=== PATIENT | female | born 1985 | race Caucasian/White ===

== ENCOUNTER 2018-11-10 13:00 | Emergency (ER) | payer OTHER ==
--- OUTSIDE RECORDS SUMMARY | 2018-11-10 13:52 | XMS REPORT | Continuity of Care Document ---
:1985 External Reference #:[id number] Author Name Orly Hummel PNP-BC, RISK DEVELOPER, [facility] Address [address] [place] [address] Care Team Providers Name Role Phone Orly Hummel PNP-BC, RISK DEVELOPER, [facility]cl[facility] Care Team Information Research And Development Technician Unavailable Orly Hummel PNP-BC, RISK DEVELOPER, [facility] Primary Care Physician Unavailable Payers Date Identification Numbers Payment Provider Subscriber Policy Number: [id number] [employer] Dorita Aguilar PayID: [id number] [address] [place] [phone] Advance Directives Description No Information Available Problems Description No Active Problems Family History Date Family Member(s) Observation Comments Father Unknown Mother No Current Problems Social History Type Date Description Comments Sex Unknown ETOH Use Denies alcohol use Tobacco Use Start: Unknown Light tobacco smoker (10 or fewer cigarettes/day) Smoking Status Reviewed: 10/25/18 Light tobacco smoker (10 or fewer cigarettes/day) Allergies, Adverse Reactions, Alerts Active Allergies Reaction Severity Comments Date Penicillin 05/22/2015 Medications Active Medications SIG Qnty Indications Ordering Date Provider Miralax 1 capfull as 510gm Orly Hummel, 11/01/2018 [id number] Powder directed every PNP-BC, RISK DEVELOPER, day to start in [facility] 8 oz of liquids may increase to bid if needed Duloxetine HCL 1 by mouth every 60caps F41.9 Orly Hummel, 10/25/2018 30mg Caps day for 2 week PNP-BCMARI, Part then 2 once a Ibcl[facility] day. Clonidine HCL take one tablet 120tabs F41.9 Orly Hummel, 10/25/2018 0.1mg by mouth four MARI COTTO, Tablets times a day as Ibclc needed maximum daily dose=4 Omeprazole 1 by mouth every 30caps K21.9 Orly Hummel, 10/25/2018 20mg Capsules day MARI COTTO, Ibclc Britt apply 21mg patch 42units Z72.0 Campbell Buchanan MD 09/29/2018 21mg/24HR every day x 6 Patches 24HR weeks, then 14mg patch every day x 2 weeks then 7mg patch every day x 2 weeks Levothyroxine Sodium 1 by mouth every 30tabs Campbell Buchanan MD 09/14/2018 day 50mcg Tablets History Medications Cefdinir 1 by mouth twice 20caps J02.9 Orly Hummel, 10/25/2018 - 300mg Capsules a day MARI COTTO, 11/04/2018 Ibcl[facility] Bupropion start 1 week 60tabs Z72.0 Campbell Buchanan MD 09/29/2018 - Hydrochloride ER (XL) prior to smoking 09/29/2018 quit date. start 150mg Tablets ER 24HR 150mg once a day for 3 days, then 150mg bid. Bupropion 1 tab by mouth 60tabs Campbell Buchanan MD 09/29/2018 - Hydrochloride ER (SR) every day and if 10/25/2018 tolerated after 3 150mg Tablets ER 12HR days, then twice daily. No Active Medications Unknown 09/04/2015 - 09/14/2018 Levonorgestrel/Ethiny 1 by mouth every 28tabs Z30.011 Kamila Foote, 2014 - l Estradiol day M.D. 09/04/2015 0.1-20mg-mcg Tablets Clindamycin HCL 1 cap by mouth 28caps Kamila Foote, - 150mg four times a day M.D. 09/04/2015 Capsules with 6-8oz water Ibuprofen 1 tablet by mouth 90tabs Kamila Foote, - 800mg Tablets three times a day M.D. 09/04/2015 with meals. Medications Administered in Office Medication SIG Qnty Indications Ordering Provider Date PPD Injection Campbell Buchanan MD 09/13/2018 Immunizations CPT Code Status Date Vaccine Lot # [id number] Given 05/22/2015 Influenza Vaccine (Fluzone) Age 3 And Older [id number] Vital Signs Date Vital Result Comment 10/25/2018 6:31pm BP Systolic 118 mmHg BP Diastolic 66 mmHg Body Temperature 97.8 F Heart Rate 87 /min Respiratory Rate 17 /min Height 68 inches 5'8" Weight 142.00 lb BMI (Body Mass Index) 21.6 kg/m2 BSA (Body Surface Area) 1.77 m2 Voss body weight in kilograms 63 kg 09/29/2018 1:29pm BP Systolic 102 mmHg BP Diastolic 68 mmHg Heart Rate 80 /min Respiratory Rate 18 /min Height 68 inches 5'8" Weight 143.25 lb BMI (Body Mass Index) 21.8 kg/m2 BSA (Body Surface Area) 1.77 m2 Voss body weight in kilograms 63 kg O2 % BldC Oximetry 98 % Ra 09/13/2018 7:31am BP Systolic Sitting Left Arm 112 mmHg BP Diastolic Sitting Left Arm 64 mmHg Body Temperature 97.6 F Heart Rate 78 /min Weight 146.25 lb O2 % BldC Oximetry 97 % 09/04/2015 11:17am BP Systolic 108 mmHg BP Diastolic 62 mmHg Height 68 inches 5'8" Weight 144.00 lb BMI (Body Mass Index) 21.9 kg/m2 BSA (Body Surface Area) 1.78 m2 05/22/2015 1:08pm BP Systolic 130 mmHg BP Diastolic 78 mmHg Heart Rate 88 /min Respiratory Rate 18 /min Height 68 inches 5'8" Weight 146.50 lb BMI (Body Mass Index) 22.3 kg/m2 BSA (Body Surface Area) 1.79 m2 Last Menstrual Period [id number] Results Test Date Facility Test Result H/L Range Note Laboratory test 10/25/2018 [facility] Rapid Strep neg finding Molecular T7/TSH 09/13/[address] T3 Uptake 34 % N 31-[address] [place] [address] [phone] Thyroxine (T4) 8.4 g/dL N 4.7-13.3 T7 2.86 g/dL Low 5.0-12.0 Thyroid Stim Hormone 6.56 uIU/mL High 0.30-4.20 CBC W/Automated Diff 09/13/[address] White Blood 7.1 K/uL N 3.1-10.[address] [place], [place] [id number] [phone] Red Blood Count 4.63 M/uL N 3.90-5.40 Hemoglobin 13.8 gm/dL N 11.6-15.8 Hematocrit 39.9 % N 36.0-46.1 Mean Cell Volume 86.2 fl N 80.9-99.0 Mean Corpuscular HGB 29.8 pg N 25.9-32.7 Mean Corpuscular HGB Conc 34.6 g/dL High 30.8-34.3 Platelet Count 187 K/uL N 155-360 Red Cell Distri Width SD 39.2 fl N 36-47 Red Cell Distri Width %CV 12.9 % N 11.7-14.4 Mean Platelet Volume 11.9 fL N 8.9-12.4 Neut% 60.9 % N 40.4-72.8 Lymph % 30.5 % N 20.0-42.0 [place] % 7.4 % N 4.3-13.2 Eo% 1.1 % N 0.0-6.6 Bas% 0.1 % N 0.0-1.1 Neut# 4.33 K/uL N 1.8-7.0 Lymph # 2.17 K/uL N 1.0-4.0 [place] # 0.53 K/uL N 0.3-0.9 Eos # 0.08 K/uL N 0.0-0.5 Baso # 0.01 K/uL N 0.0-0.1 Comprehensive Metabolic 09/13/[address] [facility] [address] Glucose 98 mg/dL N 74 -[address] [place] [address] [id number] [phone] BUN 11 mg/dL N 7-18 Creatinine 0.7 mg/dL N 0.6-1.3 Glom Filtration Rate, Estimate >60 mL/min >60 If >60 mL/min >60 2 BUN/Creat 15.7 ratio Sodium 138 mmol/L N 136-145 Potassium 3.8 mmol/L N 3.5-5.1 Chloride 107 mmol/L N 98-107 Carbon Dioxide 23 mmol/L N 21-32 Anion Gap 8 mEq/L N 8-16 Calcium 8.4 mg/dL Low 8.5-10.1 Total Protein 7.1 g/dL N 6.4-8.2 Albumin 3.6 g/dL N 3.4-5.0 Globulin 3.5 g/dL N 1.9-4.3 Alb/Glob 1.0 ratio Bilirubin,Total 0.5 mg/dL N 0.2-1.0 Sgot/Ast 14 U/L Low 15-37 3 SGPT/Alt 19 U/L N 12-78 Alkaline Phosphatase 58 U/L N 45-117 LDL Cholesterol Profile 09/13/[address] [facility] [address] Cholesterol 186 mg/dL <[address] [place] [address] [phone] Triglycerides 89 mg/dL <150 5 HDL Cholesterol 39 mg/dL Low >40 6 LDL-Cholesterol 129 mg/dL < 100 7 Glycohemoglobin A1c 09/13/[address] [facility] [address] Glycohemoglobin 4.7 % N 4.2-6.3 8 [address] [facility] (A1c) [place], [place] [id number] [phone] eAG 88 mg/dL Urine HCG 08/24/2016 [facility] Urine HCG NEGATIVE N Negative 9, (Qualitative) [address] (Qualitative) 10 [place], [place] [id number] [phone] Source: URINE, CLEAN CAT <SEE NOTE> 11 Ua Routine 08/24/2016 [facility] Urine Color YELLOW N Yellow [address] [place], [place] [id number] [phone] Urine Clarity CLEAR N Clear Urine Glucose - Dipstick NEGATIVE mg/dL N Negative Urine Bilirubin - Dipstick NEGATIVE N Negative Urine Ketone NEGATIVE mg/dL N Negative Urine Specific [place] <=1.005 Low 1.010-1.030 Urine Blood LARGE Abnormal Negative Urine PH 6.0 Low 6.5-7.5 Urine Protein - Dipstick 30 mg/dL High Negative Urine Urobilinogen - Dipstick 0.2 E.U./dL N 0.2-1.0 Urine Nitrite - Dipstick NEGATIVE N Negative Urine Leuk Esterase SMALL Abnormal Negative Urine RBC 2-5 rbc/hpf N 0-2 Urine WBC 5-10 wbc/hpf N 0-7 Urine Epithelial Cells FEW /lpf N None Seen Urine Bacteria FEW N None Seen Urine Mucus MODERATE N None Seen Urine Amorph Sediment MODERATE N Negative Source: URINE, CLEAN CAT <SEE NOTE> 12 Drugs Of 08/24/2016 [facility] Amphetamines (Urine) Negative N Abuse-Urine Screen [address] [place] [address] [phone] Barbiturates (Urine) Negative N Benzodiazepines (Urine) Negative N Cannabinoids (Urine) Negative N Cocaine Metabolite (Urine) Negative N Methadone (Urine) Negative N Opiates (Urine) Negative N Urine Cutoffs * N 13 Urine Culture 08/24/2016 [facility] Urine BETA STREPTOCOCC Abnormal [address] Culture <SEE NOTE> [place] [id number] [phone] Quantity > 100,000 CFU/mL N 15 Urine Screen 01/22/2016 [facility] Ua RFX Micro + See Note [address] [place] [place] [address] [phone] Urinalysis With 01/22/2016 [facility] Urine Color YELLOW Yellow Microscopic [address] [place] [address] [phone] Urine Clarity CLEAR Clear Urine Glucose - Dipstick NEGATIVE mg/dL Negative Urine Bilirubin - Dipstick NEGATIVE Negative Urine Ketone TRACE mg/dL High Negative Urine Specific [place] 1.010 1.010-1.030 Urine Blood NEGATIVE Negative Urine PH 7.5 6.5-7.5 Urine Protein - Dipstick NEGATIVE mg/dL Negative Urine Urobilinogen - Dipstick 0.2 E.U./dL 0.2-1.0 Urine Nitrite - Dipstick NEGATIVE Negative Urine Leuk Esterase SMALL High Negative Urine RBC 0-2 rbc/hpf 0-2 Urine WBC 0-2 wbc/hpf 0-7 Urine Epithelial Cells MODERATE NONESEEN/lpf 17 Urine Bacteria FEW NONESEEN Urine Amorph Sediment VERY FEW Negative Laboratory test 09/04/2015 [facility] HCG, Quant < 1.0 mIU/mL 18 finding [address] [place] [address] [phone] Urine Culture 09/04/2015 [facility] Urine Culture See Note 19 [address] [place] [address] [phone] Laboratory test 05/22/2015 [facility] Antibody See Note [address] [place] [address] [phone] Chlamydia/GC 05/22/2015 [facility] Chlamydia Negative Negative Oksana [address] Trachomatis, [place] [address] Oksana [phone] Neisseria Gonorrhoeae, Oksana Negative Negative Please note: See Note 21 Hepatitis C 05/22/2015 [facility] Hepatitis C Nonreactive Antibody [address] [place] [place] [address] [phone] Signal/Cutoff ratio 0.02 <0.80 22 Laboratory test 05/22/2015 [facility] Treponema Nonreactive [address] [place] [place] [address] Pierce [phone] Affirm 11/29/2013 N2N/[facility] Import Marzena Negative [Nega species tive] Gardnerella vaginalis Positive High [Negative] Trichomonas vaginalis Negative [Negative] Chlamydia/GC Oksana 11/29/2013 N2N/CCD Import Chlamydia Negative Negative Trachomatis, Oksana Neisseria Gonorrhoeae, Oksana Negative Negative Please note: See Note 24 Laboratory test 11/29/2013 N2N/[facility]D Import Urine HCG Negative Negative 25 finding (Qualitative) Urine Screen 11/29/2013 N2N/CCD Import Urine Bilirubin - Negative Negative Dipstick Urine Blood Negative Negative Urine Clarity Clear Clear Urine Color Yellow Yellow Urine Glucose - Dipstick Negative mg/dL Negative Urine Ketone Negative mg/dL Negative Urine Leuk Esterase Negative Negative Urine Nitrite - Dipstick Negative Negative Urine PH 6.0 Low 6.5-7.5 Urine Protein - Dipstick Negative mg/dL Negative Urine Specific [place] 1.025 1.010-1.030 Urine Urobilinogen - Dipstick 0.2 E.U./dL 0.2-1.0 1 Z13.6 2 Note: Persistent reduction for 3 months or more in an eGFR <60 mL/min/1.73 m2 defines CKD. Patients with eGFR values >/=60 mL/min/1.73 m2 may also have CKD if evidence of persistent proteinuria is present. The original MDRD equation for estimated GFR is not valid for patients less than 18 years of age. Additional information may be found at www.kdoqi.org. 3 Values below the stated reference ranges of AST and ALT can be seen in normal populations. Clinical correlation is suggested. 4 Reference Guidelines*: Desirable: ........... < 200 mg/dL Borderline High: ..... 200-239 mg/dL High: ................ >=240 mg/dL * The National Cholesterol Education Program (NCEP) 5 Reference Guidelines*: Normal: ............. < 150 mg/dL Borderline High: .... 150-199 mg/dL High: ............... 200-499 mg/dL Very High: .......... > 500 mg/dL * Source: National Cholesterol Education Program (NCEP) 6 Reference Guidelines*: Low HDL: ..... < 40 mg/dL Normal: ..... 40-60 mg/dL Desirable: ... > 60 mg/dL *The National Cholesterol Education Program(NCEP) 7 Reference Guidelines*: Optimal:........... <100 mg/dL Near Optimal....... 100-129 mg/dL Borderline High.... 130-159 mg/dL High............... 160-189 mg/dL Very High.......... >=190 mg/dL * Source: National Cholesterol Education Program (NCEP) 8 Elevated levels of HbA1c suggest the need for more aggressive treatment of glycemia. The [place] [employer] recommends that a primary goal of therapy should be a HbA1c of <7% and that physicians should re-evaluate the treatment regimen in patients with HbA1c values consistently >8%. 9 back pain 10 FIRST MORNING SPECIMENS GENERALLY CONTAIN THE HIGHEST CONCENTRATION OF HCG AND ARE RECOMMENDED FOR EARLY DETECTION OF . 11 URINE, CLEAN CATCH 12 URINE, CLEAN CATCH 13 URINE SPECIMENS ARE SCREENED AT THE LISTED CUTOFFS DRUG CLASS INITIAL TEST LEVEL Amphetamines 1000 ng/mL Barbiturates 200 ng/mL Benzodiazepines 200 ng/mL Cannabinoids 50 ng/mL Cocaine Metabolite 300 ng/mL Methadone 300 ng/mL Opiates 300 ng/mL Any PRESUMPTIVE POSITIVE findings are UNCONFIRMED. Confirmatory testing is suggested if findings are unexpected. Please contact laboratory if confirmatory testing is desired. SPECIMENS ARE HELD FOR 72 HOURS. 14 BETA STREPTOCOCCUS GROUP C 15 > 100,000 CFU/mL 16 01/22/16 [facility] Deleted by Reflex Group UACOM 17 POSSIBLE UROGENITAL CONTAMINATION. 18 Approximate Gestational Age and Total BHCG Range: 0.2 - 1 Week........................5-50 mIU/mL 1 - 2 Weeks.....................50-500 mIU/mL 2 - 3 Weeks..................100-5,000 mIU/mL 3 - 4 Weeks.................500-10,000 mIU/mL 4 - 5 Weeks...............1,000-50,000 mIU/mL 5 - 6 Weeks.............10,000-100,000 mIU/mL 6 - 8 Weeks.............15,000-200,000 mIU/mL 2 - 3 Months............10,000-100,000 mIU/mL 19 Organism 1 ! URETHRAL BRYAN Quantity ! < 10,000 CFU/mL 20 No reportable results 21 Acceptable specimens for this test are male urethral swab, endocervical swab and liquid based pap specimens, vaginal swabs in APTIMA transports and first void urine. See online Directory of Services for test number for rectal and pharyngeal specimens. Performed at: [address] [id number] Head Counselor: Katerina Fleming MD, Phone: [phone] 22 Antibodies to HCV not detected; does not exclude early acute HCV infection. 23 Please Note: A nonreactive test result does not exclude the possibility of exposure to, or infection with syphilis. T. pallidum antibodies may be undetectable in some stages of the infection and in some clinical conditions. 24 Acceptable specimens for this test are male urethral swab, endocervical swab and liquid based pap specimens, vaginal swabs in APTIMA transports and first void urine. See online web2media.sky of Services for test number for rectal and pharyngeal specimens. Performed at: [address] [id number] Head Counselor: Katerina Fleming MD, Phone: [phone] 25 FIRST MORNING SPECIMENS GENERALLY CONTAIN THE HIGHEST CONCENTRATION OF HCG AND ARE RECOMMENDED FOR EARLY DETECTION OF . Procedures Date Code Description Status 09/13/2018 66353 Brief Emotional/Behav Assessment W/ Scoring Doc Per Completed Standard Inst Encounters Type Date Location Provider Dx Diagnosis Office Visit 09/29/2018 [facility] Campbell Buchanan MD Z00.00 Encntr for general 1:30p [facility] adult medical exam w/o abnormal findings E03.9 Hypothyroidism, unspecified F33.0 Major depressive disorder, recurrent, mild Z72.0 Tobacco use Z71.6 Tobacco abuse counseling Office Visit 09/15/2018 3:45p [facility] Family Nurse Z11.1 Encounter for [facility] screening for respiratory tuberculosis Office Visit 09/13/2018 7:30a [facility] Campbell Buchanan Z11.1 Encounter for [facility] MD screening for respiratory tuberculosis Z13.6 Encounter for screening for cardiovascular disorders F43.0 Acute stress reaction Office Visit 09/04/2015 11:45a [facility] Kamila Foote, R10.2 Pelvic and [facility] M.D. perineal pain N92.0 Excessive and frequent menstruation with regular cycle R35.0 Frequency of micturition Office Visit 05/22/2015 1:15p [facility] Kamila Foote Z00.01 Encounter for [facility] M.D. general adult medical exam w abnormal findings L30.9 Dermatitis, unspecified Z30.011 Encounter for initial prescription of contraceptive pills Z23 Encounter for immunization Plan of Treatment Future Appointment(s):11/22/2018 5:15 pm - Orly Hummel PNP-SONJA, RISK DEVELOPER, [facility]10/25/2018 - Orly Hummel PNP-BC, RISK DEVELOPER, VcozzM51.9 Anxiety disorder, unspecifiedNew Medication:Duloxetine HCL 30 mg - 1 by mouth every day for 2 week then 2 once a day.Clonidine HCL 0.1 mg - take one tablet by mouth four times a day as needed maximum daily dose=4Comments:i do think you should re-establish with a counselor.if the meds don't start to help in a week or so let me know...the clonidine checo should help. the duloxetine will take longer to kick incall if you have side effects you can't stand let me know.Follow up:1 sswjpW78.0 Major depressive disorder, recurrent, mildE03.9 Hypothyroidism, unspecifiedNew Labs:Thyroid Stim Hormone, Ordered: Comments:well see what your testing looks like and then go from there.J02.9 Acute pharyngitis, unspecifiedNew Medication:Cefdinir 300 mg - 1 by mouth twice a dayComments:supportive care, tylenol or motrin as needed for fever or painlots of fluids, call if signs/symptomsare worsening or new concerns arise. if not improving after the abx let me know.K21.9 Gastro-esophageal reflux disease without esophagitisNew Medication:Omeprazole 20 mg - 1 by mouth every day
[2018-11-10 14:00] VITALS: BP 103/62
--- NOTE | 2018-12-10 16:38 | UC ---
Skin Complaint HPI - HPI Summary HPI Summary: Pt has 2 sores to right side of face. Appeared yesterday like clogged pores or pimples. This morning more swollen, larger and the skin "wiped away" on the one close to mouth. Pt did not apply anything, simply washed face. The one near mouth is painful, burning sensation. [ End ] - History of Current Complaint Chief Complaint: UCSkin Time Seen by Provider: 11/10/18 14:11 Stated Complaint: SKIN Hx Obtained From: Patient Hx Last Menstrual Period: November 05 ?: No Onset/Duration: Sudden Onset, Lasting Weeks Skin Exposure Onset/Duration: Days Ago Timing: Constant Onset Severity: Moderate Current Severity: Moderate Pain Intensity: 3 Pain Scale Used: 0-10 Numeric Location: Discrete, Face Character: Redness, Painful Associated Signs & Symptoms: Positive: Drainage - Allergy/Home Medications Allergies/Adverse Reactions: Allergies Allergy/AdvReac Type Severity Reaction Status Date / Time Penicillins Allergy Rash Verified 11/10/18 14:00 Home Medications: Home Medications DULoxetine DR CAP* [Cymbalta CAP*] 30 mg PO DAILY 11/10/18 [History Confirmed ] Levothyroxine TAB* [Synthroid TAB*] 50 mcg PO DAILY 11/10/18 [History Confirmed 11/10/18] Omeprazole 20 mg PO DAILY 11/10/18 [History Confirmed 11/10/18] cloNIDine TAB* [Catapres 0.1 MG TAB*] 0.1 mg PO DAILY 11/10/18 [History Confirmed 11/10/18] PMH/Surg Hx/FS Hx/Imm Hx Previously Healthy: Yes - Surgical History Surgical History: None - Family History Known Family History: Positive: Respiratory Disease - asthma - Social History Alcohol Use: None Substance Use Type: None Smoking Status (MU): Light Every Day Tobacco Smoker Type: Cigarettes Amount Used/How Often: 1/2 PPD Length of Time of Smoking/Using Tobacco: 12 Years Have You Smoked in the Last Year: Yes Review of Systems All Other Systems Reviewed And Are Negative: Yes Skin: Positive: Other - 2 open wounds Is Patient Immunocompromised?: No Physical Exam Triage Information Reviewed: Yes Appearance: Well-Appearing, Well-Nourished, Pain Distress Vital Signs: Initial Vital Signs Temp 98.8 F 11/10/18 13:51 Pulse 59 11/10/18 13:51 Resp 18 11/10/18 13:51 BP 103/62 11/10/18 13:51 Pulse Ox 100 11/10/18 13:51 Vital Signs Reviewed: Yes Eye Exam: Normal ENT Exam: Normal Dental Exam: Normal Neck exam: Normal Respiratory Exam: Normal Cardiovascular Exam: Normal Abdominal Exam: Normal Bowel Sounds: Positive: Present Musculoskeletal Exam: Normal Neurological Exam: Normal Psychological Exam: Normal Skin: Positive: Significant Lesion(s) - 2 abscess on the right side of face, open and draining Course/Dx - Course Course Of Treatment: hx obtained, exam performed ,meds reviewed, treated for infection - Differential Diagnoses - Skin Complaint Differential Diagnoses: Abscess, Cellulitis, Contact Dermatitis, Urticaria - Diagnoses Provider Diagnosis: Abscess Discharge - Sign-Out/Discharge Documenting (check all that apply): Patient Departure All imaging exams completed and their final reports reviewed: No Studies - Discharge Plan Condition: Stable Disposition: HOME Prescriptions: DOXYcycline CAP(*) [DOXYcycline 100MG CAP(*)] 100 mg PO BID #14 cap Patient Education Materials: Abscess (ED) Referrals: Mervat Wei [Medical Doctor] - Orly Hummel NP [Primary Care Provider] - Additional Instructions: 1. use the medication as prescribed. 2. DO not apply anything topically 3.Follow up with dermatology if not clearing up. - Billing Disposition and Condition Condition: STABLE Disposition: Home - Attestation Statements Provider Attestation: I was available for consult. This patient was seen by the DESIREE. The patient was not presented to, seen by, or examined by me. -Ljmahesh Addendum entered and electronically signed by Josefina Saxena NP 12/10/18 16: 39:
== END 2018-11-10 14:24 | disposition home or self-care (01) ==
LOC: UCCORT 13:00
DX: L02.01 Cutaneous abscess of face (principal); F17.210 Nicotine dependence, cigarettes, uncomplicated; Z88.0 Allergy status to penicillin
CPT/HCPCS: 99212; G0463